=== PATIENT | female | born 1960 | race Caucasian/White ===

== ENCOUNTER 2020-05-10 10:59 | Emergency (ER) | payer OTHER, SELFPAY ==
--- NOTE | ~2020-05-10 | US_ITS ---
EXAMINATION: US venous doppler LE RT DATE: 05/10/2020 12:16 INDICATION: Right lower limb pain. TECHNIQUE: Grayscale ultrasound images without and with compression and Doppler ultrasound images of the right lower extremity veins were obtained. COMPARISON: None. FINDINGS: The visualized portions of right common femoral vein, profunda (deep) femoral vein, femoral vein, pop liteal vein, peroneal veins, posterior tibial veins, and greater saphenous vein outflow are patent. IMPRESSION: 1. No deep venous thrombosis. Reviewed, dictated and finalized at location A.
[2020-05-10 11:26] VITALS: BP 143/84; PULSE 71; RESP 16; TEMP 37; O2SAT 98
[2020-05-10 11:51] VITALS: BP 143/84; PULSE 107; RESP 20; TEMP 37; O2SAT 98
--- NOTE | 2020-05-10 12:32 | ED.LOWEXIN ---
HPI - Extremity Injury (Lower) General Chief Complaint: Extremity Injury, Lower <Thanh Hawkins PA-C - Last Filed: 05/10/20 12:35> Stated Complaint: leg injury <Thanh Hawkins PA-C - Last Filed: 05/10/20 12:35> Time Seen by Provider: 05/10/20 11:37 <Thanh Hawkins PA-C - Last Filed: 05/10/20 12:35> Source: patient <Thanh Hawkins PA-C - Last Filed: 05/10/20 12:35> Mode of arrival: ambulatory <Thanh Hawkins PA-C - Last Filed: 05/10/20 12:35> Limitations: no limitations <Thanh Hawkins PA-C - Last Filed: 05/10/20 12:35> History of Present Illness HPI Narrative: Patient is a 59-year-old female who presents with several days duration of right leg pain noting that she has struck the leg several days prior developed a hematoma and now has some swelling and tenderness down near the ankle worse with weightbearing and activity. Patient has concern for DVT with history of similar occurrence many years ago. Patient presents per private vehicle in no distress <Thanh Hawkins PA-C - Last Filed: 05/10/20 12:35> Related Data Allergies/Adverse Reactions: Allergies Allergy/AdvReac Type Severity Reaction Status Date / Time No Known Drug Allergies Allergy Unknown Back Pain Verified 05/10/20 11:28 <Thanh Hawkins PA-C - Last Filed: 05/10/20 12:35> Review of Systems Review of Systems: All systems reviewed & are unremarkable except as noted in HPI and below <Thanh Hawkins PA-C - Last Filed: 05/10/20 12:35> PMFSH Past Medical History Medical History: Medical History (Updated 05/10/20 @ 12:35 by Thanh Hawkins PA-C) Deep vein thrombosis <Thanh Hawkins PA-C - Last Filed: 05/10/20 12:35> Social History Social History: Social History (Updated 05/10/20 @ 12:33 by Thanh Hawkins PA-C) Smoking status: Former smoker <ERIK Parker Last Filed: 05/10/20 12:35> Exam Narrative: Exam Narrative: GENERAL: Well-appearing, well-nourished, and in no acute distress. HEAD: Normocephalic, atraumatic. EYES: PERRLA and EOMI. ENT: Nares clear, no rhinorrhea or epistaxis. Mucous membranes moist. CHEST: Clear to auscultation. No respiratory distress. No wheezes rales or rhonchi HEART: Regular rate and rhythm. No murmur heard. Normal peripheral pulses. EXTREMITIES: Normal range of motion. No edema. Resolving hematoma to the right abdi with bruising spreading down to the ankle SKIN: Warm, dry, no rash. NEURO: No focal deficits. Alert and oriented x3. Neurovascularly intact PSYCH: Normal mood and affect. <ERIK Parker Last Filed: 05/10/20 12:35> Course Course Emergency Course: Patient in the room in no distress aware of case findings treatment plan and diagnosis <ERIK Parker Last Filed: 05/10/20 12:35> Vital Signs Vital signs: Vital Signs Temperature 37.0 C 05/10/20 11:26 Pulse Rate 71 05/10/20 11:26 Respiratory Rate 16 05/10/20 11:26 Blood Pressure 143/84 H 05/10/20 11:26 Pulse Oximetry 98 05/10/20 11:26 Temperature 37.0 C 05/10/20 11:51 Pulse Rate 64 05/10/20 13:19 Respiratory Rate 18 05/10/20 13:19 Blood Pressure 150/89 H 05/10/20 13:19 Pulse Oximetry 99 05/10/20 13:19 <ERIK Parker Last Filed: 05/10/20 12:35> Vital Signs Temperature 37.0 C 05/10/20 11:26 Pulse Rate 71 05/10/20 11:26 Respiratory Rate 16 05/10/20 11:26 Blood Pressure 143/84 H 05/10/20 11:26 Pulse Oximetry 98 05/10/20 11:26 Temperature 37.0 C 05/10/20 11:51 Pulse Rate 64 05/10/20 13:19 Respiratory Rate 18 05/10/20 13:19 Blood Pressure 150/89 H 05/10/20 13:19 Pulse Oximetry 99 05/10/20 13:19 <Nicolasa Shelton MD - Last Filed: 05/10/20 14:57> MDM - Extremity Injury (Lower) MDM Narrative Medical decision making narrative: Patients injury or pain is consistent with musculoskeletal etiology. No signs of neurological or vascular
[2020-05-10 13:19] VITALS: BP 150/89; PULSE 64; RESP 18; O2SAT 99
== END 2020-05-10 13:21 | disposition home or self-care (01) ==
PROVIDERS: Emergency Provider Emergency Medicine; PCP Family Medicine
DX: S80.11XA Contusion of right lower leg, initial encounter (principal); W22.8XXA Striking against or struck by other objects, initial encounter; Z86.718 Personal history of other venous thrombosis and embolism
CPT/HCPCS: 93971; 99284

== ENCOUNTER 2020-09-27 10:31 | Outpatient (CLI) | payer OTHER, SELFPAY ==
--- NOTE | ~2020-09-27 | MM_ITS ---
EXAMINATION: MM screening sarabjit BI w tanvi HISTORY: Screening mammogram TECHNIQUE: Craniocaudal and mediolateral oblique 3-D tomosynthesis images were obtained and synthetic 2-D images were generated. CAD analysis was submitted and interpreted. COMPARISON: 05/24/2019, 02/02/2018, 12/16/2016 bilateral digital screening mammogram examinations BREAST PARENCHYMAL COMPOSITION: The breasts are almost entirely fatty. FINDINGS: There is no evidence of suspicious mass, calcification, or architectural distortion to sugg est malignancy in either breast. There has been no suspicious interval change. IMPRESSION: 1. No mammographic evidence of malignancy. 2. Recommend routine screening mammography in one year. BI-RADS Category 1: Negative Reviewed, dictated and finalized at location A. N TRIMMER
== END 2020-09-27 10:32 | disposition home or self-care (01) ==
LOC: ANHIMG 10:35
PROVIDERS: PCP Family Medicine; Visit Provider Family Medicine
DX: Z12.31 Encounter for screening mammogram for malignant neoplasm of breast (principal)
CPT/HCPCS: 77063; 77067

== ENCOUNTER 2021-08-29 13:22 | Outpatient (CLI) | payer OTHER, SELFPAY ==
--- NOTE | ~2021-08-29 | US_ITS ---
EXAMINATION: US arterial ankle brachial ind EXAM DATE: 08/29/2021 15:13 INDICATION: Peripheral vascular disease, unspecified . TECHNIQUE: Segmental pressures and plethysmographic and Doppler waveforms of the brachial and lower e xtremity arteries were obtained. There is no prior study for comparison. FINDINGS: Right and left brachial artery pressures of 129 mm Hg and 121 mm Hg, respectively, are concordant (no rmal difference <= 30 mmHg). RIGHT LEG: The ankle-brachial index (LAUREN) is 1.08 (normal >= 0.9-1). The great toe-brachial index (TBI) is 0.77 (normal >= 0.65). The lower extremity ratios, segmental pressure gradients as follows; Dorsalis pedis: 1.08 (139 mmHg). Posterior tibial: 1.06 (137 mmHg). (Normal gradients <= 20-30 mmHg between adjacent levels on the same leg or the same levels on the two legs). Arterial waveforms are monophasic. LEFT LEG: The ankle-brachial index (LAUREN) is 1.10 (normal >= 0.9-1). The great toe-brachial index (TBI) is 0.56 (normal >= 0.65). The lower extremity ratios, segmental pressure gradients as follows; Dorsalis pedis: 1.04 (134 mmHg). Posterior tibial: 1.10 (142 mmHg). (Normal gradients <= 20-30 mmHg between adjacent levels on the same leg or the same levels on the two legs). Arterial waveforms are monophasic. IMPRESSION: 1. Right ankle-brachial index 1.08, normal. 2. Left ankle-brachial index 1.10, normal. 3. Segmental pressures as above. Reviewed, dictated and finalized at location A. R GENERAL
--- NOTE | ~2021-08-29 | US_ITS ---
EXAMINATION: US venous doppler [facility] EXAM DATE: 08/29/2021 15:12 INDICATION: Bilateral leg pain. TECHNIQUE: Multiple grayscale, color flow and Doppler images of the lower extremity deep venous syste ms bilaterally were obtained and reviewed. Comparison is made to prior examination from 05/10/2020. FINDINGS: Right side: The right common femoral, femoral and profunda veins demonstrate normal color flow, respi ratory variation, augmentation and compressibility. Compressibility, color flow confirmed within the right popliteal, posterior tibial, peroneal, and greater saphenous veins. Left side: The left common femoral, femoral and profunda veins demonstrate normal color flow, respira tory variation, augmentation and compressibility. Compressibility, color flow confirmed within the l eft popliteal, posterior tibial, peroneal, and greater saphenous veins. IMPRESSION: No lower extremity deep venous thrombosis bilaterally. Reviewed, dictated and finalized at location A. HAND
== END 2021-08-29 13:23 | disposition home or self-care (01) ==
LOC: ANHIMG 13:28
PROVIDERS: PCP Family Medicine; Visit Provider Family Medicine
DX: I73.9 Peripheral vascular disease, unspecified (principal); I82.401 Acute embolism and thrombosis of unspecified deep veins of right lower extremity
CPT/HCPCS: 93922; 93970

== ENCOUNTER → 2021-12-25 15:44 | Outpatient (CLI) | payer OTHER, SELFPAY ==
--- NOTE | ~2021-12-25 | MM_ITS ---
EXAMINATION: MM screening sarabjit BI w tanvi HISTORY: Screening TECHNIQUE: Craniocaudal and mediolateral oblique 3-D tomosynthesis images were obtained and synthetic 2-D images were generated. CAD analysis was submitted and interpreted. COMPARISON: Comparison to multiple prior studies sequentially, with oldest reviewed study dated 10/26. BREAST PARENCHYMAL COMPOSITION: The breasts are almost entirely fatty. FINDINGS: There is no evidence of suspicious mass, calcification, or architectural distortion to sugg est malignancy in either breast. There has been no suspicious interval change. IMPRESSION: 1. No mammographic evidence of malignancy. 2. Recommend routine screening mammography in one year. BI-RADS Category 1: Negative Reviewed, dictated and finalized at location A.
== END ==
PROVIDERS: PCP Family Medicine; Visit Provider Family Medicine
DX: Z12.31 Encounter for screening mammogram for malignant neoplasm of breast (principal)
CPT/HCPCS: 77063; 77067

== ENCOUNTER 2023-01-08 15:00 | Outpatient (CLI) | payer OTHER, SELFPAY ==
--- NOTE | ~2023-01-08 | MM_ITS ---
EXAMINATION: MM screening sarabjit BI w tanvi HISTORY: Screening mammogram, family history of breast cancer in her sister. TECHNIQUE: Craniocaudal and mediolateral oblique 3-D tomosynthesis images were obtained and synthetic 2-D images were generated. CAD analysis was submitted and interpreted. COMPARISON: 12/25/2021, 09/27/2020, 05/24/2019 BREAST PARENCHYMAL COMPOSITION: The breasts are almost entirely fatty. FINDINGS: No suspicious mass, calcification, or architectural distortion are identified in either dominique ast to suggest malignancy. There has been no suspicious interval change. IMPRESSION: 1. No mammographic evidence of malignancy. 2. Recommend routine screening mammography in one year. BI-RADS Category 1: Negative Reviewed, dictated and finalized at location A.
== END 2023-01-08 15:01 | disposition home or self-care (01) ==
PROVIDERS: PCP Family Medicine; Visit Provider Nurse Practitioner Adult Health
DX: Z12.31 Encounter for screening mammogram for malignant neoplasm of breast (principal)
CPT/HCPCS: 77063; 77067